=== PATIENT | female | born 1990 | race Two or more races ===

== ENCOUNTER 2017-01-26 13:02 | Inpatient (IN) | payer MEDICAID ==
[~2017-01-26 13:02] MED LIST: FOLI1 PO; IBUP600 PO; MACR100C PO; PRENTAB72 PO
--- NOTE | 2017-01-26 13:46 | PD ---
HPI Chief Complaint contractions x 2 days Date Seen: Jan 26, 2017 Time Seen: 13:46 Travel History International Travel<30 Days: No Contact w/Intl Traveler<30Days: No Known Affected Area: No History of Present Illness HPI Patient is a Pakistani-speaking is a 26 year old at 39 and 4/7 weeks gestation, [facility]GI 01/30/2017, who presents to the OB ED with contractions x 2 days. She denies leakage of fluid and vaginal bleeding. She feels baby moving regularly. She denies PALACIO/N/V/D/fever/sick contacts/calf pain/dizziness/seeing spots. She endorses SOB this . OB care is with Jeni Abbott. Interpretation by Arlene Amaro, [id number] Para: 3 : 4 History Past Medical History Medical History: Denies Significant Hx Obstetric History Obstetric History G1-G3: vaginal delivery, reportedly normal pregnancies, most recent 2 years ago , largest weight G4: current, uncomplicated labor Past Surgical History Surgical History: No Previous Surgery Family History Family History: Negative Social History Alcohol Use: No Tobacco Use: No Substance Abuse: No Allergies-Medications (Allergen,Severity, Reaction): Coded Allergies: No Known Allergies (Unverified , 04/26/16) Review of Systems Except as stated in HPI: all other systems reviewed are Neg Physical Exam Narrative GENERAL: Well-nourished, well-developed patient. SKIN: Warm and dry. HEAD: Normocephalic and atraumatic. EYES: No scleral icterus. No injection or drainage. ENT: No nasal drainage noted. Mucous membranes pink. Airway patent. NECK: Supple, trachea midline. No JVD. CARDIOVASCULAR: Regular rate and rhythm without murmurs, gallops, or rubs. RESPIRATORY: Breath sounds equal bilaterally. No accessory muscle use. ABDOMEN/GI: Abdomen soft, non-tender, bowel sounds present, no rebound, no guarding Gravid to 38 weeks size GENITOURINARY: External Genitalia: intact and normal in appearance Cervix: 50/-2 Presentation: vertex Membranes: bulging Uterine Contractions: q4-5 min FHT's: Category: 1 Baseline: 150 Reactive: y to 165 Variability:mod Decels: absent EXTREMITIES: No cyanosis or edema. BACK: Nontender without obvious deformity. No CVA tenderness. NEUROLOGICAL: Awake and alert. Motor and sensory grossly within normal limits. Five out of 5 muscle strength in all muscle groups. Normal speech. Data Data Vital Signs Reviewed: Yes Orders Vital Signs (Adult) .ON ADMISSION (01/26/17 13:43) ^ Labor Status (01/26/17 13:43) ^ Non Stress Test (01/26/17 13:43) ^ Hydration (01/26/17 13:43) MDM Medical Record Reviewed: Yes (VS reviewed: BP 106/66, P128, R18. Temp not available) Narrative Course / MDM 26 yr old Pakistani-speaking is a 26 year old at 39 and 4/7 weeks gestation, MAGGI 01/30/2017, who presents in labor. Intrauterine : Category 1 tracing Cervix: 6/50%/-2 Patient desires vaginal delivery without epidural Expect prompt delivery EFW 6 lb Intact bulging membrane Admit for labor CBC, UA, T&S ordered IV fluids Monitor heart tones Routine care lab pink slip from Jeni Abbott reviewed and unremarkable. Will get official labs faxed now. GBS unknown: order rapid GBS, treat with IV penicillin per protocol if positive JANEYW Hawa Walsh MD R1 Jan 26, 2017 13:46
[2017-01-26] MEDS ORDERED: LACTATED RINGER'S 1000 ML INJ 1,000 ML IV SCH (13:49)
[2017-01-26] MEDS ORDERED: LACTATED RINGER'S 1000 ML INJ 1,000 ML IV PRN (13:49)
[2017-01-26] MEDS ORDERED: LIDOCAINE HCL 1% 50 ML VIAL I-DERMAL PRN (14:00)
[2017-01-26] MEDS ORDERED: MINERAL OIL 10 ML VIAL TOPICAL PRN (14:00)
[2017-01-26] MEDS ORDERED: OXYTOCIN 30 UNITS-500ML PREMIX 500 ML IV ONE (14:00)
[2017-01-26] MEDS ORDERED: CITRIC ACID-SODIUM CITRATE LIQ 30 ML UDC PO SCH (14:00)
[2017-01-26] MEDS ORDERED: LIDOCAINE HCL 1% 50 ML VIAL INFIL PRN (14:00)
[2017-01-26] MEDS ORDERED: SODIUM CHLORID 0.9% 500 ML INJ 500 ML IV PRN (14:00)
[2017-01-26] MEDS ORDERED: SODIUM CHLOR 0.9% 1000 ML INJ 1,000 ML IV PRN (14:09)
--- NOTE | 2017-01-26 14:22 | HHI.HP ---
HPI Chief Complaint contractions Date Seen: Jan 26, 2017 Time Seen: 14:21 Travel History International Travel<30 Days: No Contact w/Intl Traveler<30Days: No Known Affected Area: No History of Present Illness HPI Patient is a Luxembourger-speaking is a 26 year old at 39 and 4/7 weeks gestation, MAGGI 01/30/2017 based on second trimester US not consistent with LMP, who presents to the OB ED with contractions x 2 days. She denies leakage of fluid and vaginal bleeding. She feels baby moving regularly. She denies PALACIO/N/V/D /fever/sick contacts/calf pain/dizziness/seeing spots. She endorses SOB this . OB care is with Jeni Abbott; she established care at approx. 22 weeks. Interpretation by Arlene Amaro, [id number] Para: 3 : 4 History Past Medical History Medical History: Denies Significant Hx Obstetric History Obstetric History G1-G3: vaginal delivery, reportedly normal pregnancies, most recent 2 years ago , largest weight G4: current, uncomplicated labor Labs reviewed from Jeni Abbott's office: 11/11/16: H&H 11.3/32.8, plt wnl 11/27/16: H&H 10.7/31.1, plt wnl, A1c 4.8 11/11/16: UA, GC/Chlamydia, Trichomonas negative, Hep B negative, RPR non- reactive, O positive blood type, HIV negative, Rubella immune Past Surgical History Surgical History: No Previous Surgery Family History Family History: Negative Social History Alcohol Use: No Tobacco Use: No Substance Abuse: No Allergies-Medications (Allergen,Severity, Reaction): Coded Allergies: No Known Allergies (Unverified , 04/26/16) Review of Systems Except as stated in HPI: all other systems reviewed are Neg Physical Exam Narrative GENERAL: Well-nourished, well-developed patient. SKIN: Warm and dry. HEAD: Normocephalic and atraumatic. EYES: No scleral icterus. No injection or drainage. ENT: No nasal drainage noted. Mucous membranes pink. Airway patent. NECK: Supple, trachea midline. No JVD. CARDIOVASCULAR: Regular rate and rhythm without murmurs, gallops, or rubs. RESPIRATORY: Breath sounds equal bilaterally. No accessory muscle use. ABDOMEN/GI: Abdomen soft, non-tender, bowel sounds present, no rebound, no guarding Gravid to 38 weeks size GENITOURINARY: External Genitalia: intact and normal in appearance Cervix: 50/-2 Presentation: vertex Membranes: bulging Uterine Contractions: q4-5 min FHT's: Category: 1 Baseline: 150 Reactive: y to 165 Variability:mod Decels: absent EXTREMITIES: No cyanosis or edema. BACK: Nontender without obvious deformity. No CVA tenderness. NEUROLOGICAL: Awake and alert. Motor and sensory grossly within normal limits. Five out of 5 muscle strength in all muscle groups. Normal speech. Data Data Vital Signs Reviewed: Yes (BP 106/66, P128, R18. Temp not available) Orders Vital Signs (Adult) .ON ADMISSION (01/26/17 13:43) ^ Labor Status (01/26/17 13:43) ^ Non Stress Test (01/26/17 13:43) ^ Hydration (01/26/17 13:43) Admit To Inpatient (01/26/17 ) Code Status (01/26/17 13:49) Vital Signs (Adult) .Per protocol (01/26/17 13:49) Activity Oob Ad Lisa (01/26/17 13:49) Heart (01/26/17 13:49) Amnioinfusion (01/26/17 13:49) Urinary Catheter Management .ONCE (01/26/17 13:49) Diet Npo (01/26/17 Lunch) Lactated Ringer's 1000 Ml Inj (Lr 1000 M (01/26/17 13:49) Lactated Ringer's 1000 Ml Inj (Lr 1000 M (01/26/17 13:49) Sodium Chlorid 0.9% 500 Ml Inj (Ns 500 M (01/26/17 14:00) Sodium Chlor 0.9% 1000 Ml Inj (Ns 1000 M (01/26/17 14:09) Lidocaine 1% Inj (50 Ml) (Xylocaine 1% I (01/26/17 14:00) Citric Acid-Sodium Citrate Liq (Bicitra (01/26/17 14:00) Fentanyl Inj (Fentanyl Inj) (01/26/17 14:00) Fentanyl Inj (Fentanyl Inj) (01/26/17 14:00) Complete Blood Count With Diff (01/26/17 13:49) Hold Clot (01/26/17 13:49) Abo/Rh Blood Type (01/26/17 13:49) Urinalysis - C+S If Indicated (01/26/17 13:49) Type And Screen (01/26/17 13:49) Resp Oxygen Non Rebreathe Mask (01/26/17 ) ^ Epidural / Intrathecal Infus (01/26/17 13:49) Oxytocin 30 Units-500ml Premix (Pitocin (01/26/17 14:00) Lidocaine 1% Inj (50 Ml) (Xylocaine 1% I (01/26/17 14:00) Light Mineral Oil (Muri-Lube Oil) (01/26/17 14:00) Inpatient Certification (01/26/17 ) Ob (2e) Additional Admit Info (01/26/17 13:51) Group B Strep Pcr (Rapid) (01/26/17 14:08) Assessment/Plan Assessment and Plan 26 yr old Luxembourger-speaking is a 26 year old at 39 and 4/7 weeks gestation, [facility]GI 01/30/2017, who presents in labor. Intrauterine : Category 1 tracing Cervix: 6/50%/-2 Patient desires vaginal delivery without epidural Expect prompt delivery EFW 6 lb Intact bulging membrane Admit for labor CBC, UA, T&S ordered IV fluids Monitor heart tones Routine care lab pink slip from Jeni Abbott reviewed and unremarkable. Will get official labs faxed now. GBS unknown: order rapid GBS, treat with IV penicillin per protocol if positive SDW Dr. Lim Discharge Planning Discharge 1-2 days after vaginal delivery to home Hawa Peck MD R1 Jan 26, 2017 14:22
[2017-01-26 14:35] LABS: BACTERIA, URINE MANY /hpf; BLOOD, URINE NEG (NEG); COMMENT (UR) CULTURE INDICATED; CULTURE IF INDICATED CULTURE INDICATED; GLUCOSE,URINE NEG (NEG); KETONE, URINE NEG (NEG); NITRITE,URINE NEG (NEG); PH, URINE 6.5 (5.0-8.5); SQUAMOUS EPITHELIAL CELL URINE 29 /hpf (0-5); URINE COLOR YELLOW (YELLW/STRAW)
[2017-01-26 14:56] LABS: AUTOMATED NEUTROPHIL # 6.8 TH/MM3 (1.8-7.7); BASOPHIL % 0.5 % (0.0-2.0); EOSINOPHIL # 0.1 TH/MM3 (0-0.4); EOSINOPHIL % 1.3 % (0.0-4.0); HEMATOCRIT 34.3 % (35.0-46.0); HEMO FLAGS DIFF FINAL; LYMPH % 20.2 % (9.0-44.0); LYMPHOCYTE # 1.9 TH/MM3 (1.0-4.8); MEAN CELL VOLUME 87.6 FL (80.0-100.0); MEAN CORPUSCULAR HEMOGLOBIN 28.5 PG (27.0-34.0); MEAN CORPUSCULAR HGB CONC 32.6 % (32.0-36.0); MONO % 5.4 % (0.0-8.0); NEUT % 72.6 % (16.0-70.0); PLATELET COUNT 293 TH/MM3 (150-450); RED BLOOD COUNT 3.91 MIL/MM3 (4.00-5.30); RED CELL DISTRIBUTION WIDTH 13.6 % (11.6-17.2); WHITE BLOOD COUNT 9.4 TH/MM3 (4.0-11.0)
--- NOTE | 2017-01-26 15:21 | PD.LABORPN ---
Subjective Subjective Patient feeling CTX q5 min, uncomfortable, still not wanting epidural but would now like IV medication Still feeling baby move No LOF yet Objective Objective Pelvic Exam: Cervix: soft, midposition Dilatation:7 Effacement:70 Station: -3 Presentation: vertex Membranes: AROM at 1515 Uterine Contractions: q4min FHT's: Category: 1 Baseline:135 Reactive: y to 155 Variability:mod Decels: absent Assessment/Plan Problem List: (1) with 39 completed weeks gestation (2) Mother's group B Streptococcus colonization status unknown Assessment and Plan 26 yr old Palauan-speaking is a 26 year old at 39 and 4/7 weeks gestation, [facility]GI 01/30/2017, admitted for labor. Intrauterine : Category 1 tracing Cervix: 6/70%/-3 Patient desires vaginal delivery without epidural IV pain meds PRN Expect vaginal delivery EFW 6 lb SROM 01/26/17 @ 1515 CBC, UA, T&S ordered T&S pending H&H 11.2/34.3 UA notable for WBC = 61, large leukocyte esterase, will treat for UTI post- per attending IV fluids Clear liquids Monitor heart tones Routine care Official records from Jeni Abbott reviewed and unremarkable. GBS unknown: ordered rapid GBS, still pending, treat with IV penicillin per protocol if positive Previous child with cleft palate: per EMR, no abnormalities noted on US this per records SDW Dr. Lim and Hawa Christianson MD R1 Jan 26, 2017 15:20
[2017-01-26] MEDS ORDERED: MEASLES, MUMPS, RUBELLA VACCINE 0.5 ML VIAL SQ ONE (16:00)
[2017-01-26] MEDS ORDERED: DIPHTH/TETANUS/ACEL PERTUSSIS (BOOSTER) 0.5 ML VIAL/PFS IM ONE (16:00)
[2017-01-26] MEDS ORDERED: oxyCODONE/ACETAMINOPHEN 5 MG/325 MG TAB PO PRN ×2 (18:15)
[2017-01-26] MEDS ORDERED: ALUMINUM/MAGNESIUM/SIMETH 30 ML CUP PO PRN (18:15)
[2017-01-26] MEDS ORDERED: ZOLPIDEM TARTRATE 5 MG TAB PO PRN (18:15)
[2017-01-26] MEDS ORDERED: BENZOCAINE 20% TOPICAL SPRAY 60 ML CAN TOPICAL PRN (18:15)
[2017-01-26] MEDS ORDERED: WITCH HAZEL 50%/GLYCERIN 12.5% 40 PAD JAR TOPICAL PRN (18:15)
[2017-01-26] MEDS ORDERED: DOCUSATE SODIUM 50 MG/SENNA 8.6 MG TAB PO PRN (18:15)
[2017-01-26] MEDS ORDERED: SODIUM CHLORIDE 0.9% FLUSH 10 ML FLUSH IV FLUSH PRN (18:15)
[2017-01-26] MEDS ORDERED: ONDANSETRON ODT 4 MG TAB PO PRN (18:15)
--- NOTE | 2017-01-26 18:18 | PD.OB.DELI ---
Anesthesia: None Episiotomy: None Vaginal Delivery: Normal Presentation: Occiput anterior Nuchal Cord: x1 (tight, clampled and cut after head presentation) Infant: Male, Single One Minute : 9 Five Minute : 9 Placenta: Intact Laceration: No lacerations Additional Information Normal spontaneous vaginal delivery of live male intact, position ANKUSH over intact perineum without epidural anesthesia. Nuchal cord 1, tight, clamped and cut before delivery of body. Spontaneous delivery of placenta with 3-vessel cord. No lacerations. EBL [address] Lim present during entire delivery. R2 Dr. Stevenson was scrubbed in and assisted delivery. Hawa Peck MD R1 Jan 26, 2017 18:18
[2017-01-26] MEDS: IBUPROFEN 600 MG TAB PO PRN (18:46)
[2017-01-26 19:00] VITALS: BP 116/70; PULSE 81
[2017-01-26] MEDS ORDERED: OXYTOCIN 30 UNITS-500ML PREMIX 500 ML ONE (19:03)
[2017-01-26 19:10] VITALS: RESP 18
[2017-01-26 19:25] VITALS: RESP 18
[2017-01-26 19:40] VITALS: RESP 18
[2017-01-26 20:30] VITALS: BP 97/63; PULSE 74; RESP 16; TEMP 98.1
[2017-01-26] MEDS: SODIUM CHLORIDE 0.9% FLUSH 10 ML FLUSH IV FLUSH SCH (21:00)
[2017-01-26] MEDS: ACETAMINOPHEN 325 MG TAB PO PRN (22:55)
[2017-01-27] MEDS: IBUPROFEN 600 MG TAB PO PRN ×2 (05:45→13:17)
[2017-01-27] MEDS: ACETAMINOPHEN 325 MG TAB PO PRN ×2 (05:45→13:18)
--- NOTE | 2017-01-27 07:29 | HHI.OB ---
Subjective Post Day: 1 Remarks day # 1. AFVSS overnight. Decreased lochia. Denies dysuria. No breast tenderness. She is feeding the baby via breast and formula. Appetite good. No nausea or vomiting. Ambulating well. Denies calf pain or shortness of breath. Otherwise, she is doing well this morning and has no other concerns. Interpretor Vielka Avalos was used during this interaction. Objective Vitals/I&O Vital Signs Date Time Temp Pulse Resp B/P Pulse Ox O2 Delivery O2 Flow Rate FiO2 01/26/17 23:55 16 01/26/17 20:30 98.1 74 16 97/63 01/26/17 19:46 16 01/26/17 19:40 18 01/26/17 19:25 18 01/26/17 19:10 18 01/26/17 19:00 81 116/70 Objective Remarks GENERAL: Well-nourished, well-developed female in no apparent distress. CARDIOVASCULAR: Regular rate and rhythm without murmurs, gallops, or rubs. RESPIRATORY: Breath sounds equal bilaterally. No accessory muscle use. ABDOMEN/GI: Abdomen soft, non-tender. Fundus: Firm, non-tender at umbilicus. GENITOURINARY: Light to moderate bleeding. EXTREMITIES: No cyanosis or edema, non-tender, without signs of DVT. Medications and IVs Current Medications Medications (Trade) Dose Ordered Sig/Dominic Route Start Time Stop Time Status Last Admin (NS Flush) 2 ml BID IV FLUSH 01/26/17 21:00 (NS Flush) 2 ml UNSCH PRN IV FLUSH 01/26/17 18:15 (Tylenol) 650 mg Q4H PRN PO 01/26/17 18:15 01/27/17 05:45 (Motrin) 600 mg Q6H PRN PO 01/26/17 18:15 01/27/17 05:45 (Percocet 5-325 Mg) 1 tab Q4H PRN PO 01/26/17 18:15 (Percocet 5-325 Mg) 2 tab Q4H PRN PO 01/26/17 18:15 (Americaine 20% Top Spr) 1 spray Q4H PRN TOPICAL 01/26/17 18:15 (Tucks Pads) 1 applic QID PRN TOPICAL 01/26/17 18:15 (Moon-Colace) 2 tab Q12H PRN PO 01/26/17 18:15 (Ambien) 5 mg HS PRN PO 01/26/17 18:15 (Mag-Al Plus Susp Liq) 15 ml Q8H PRN PO 01/26/17 18:15 (Zofran Odt) 4 mg Q6H PRN PO 01/26/17 18:15 Assessment/Plan Problem List: (1) with 39 completed weeks gestation (2) Mother's group B Streptococcus colonization status unknown Assessment and Plan 26 yr old Belizean-speaking is a 26 year old [id number] who is s/p NVD -Continue routine care. -Percocet and Motrin PRN pain. -Encouraged OOB. Advised pelvic rest for 6 wks. -Re: ctrl, she would like Copper IUD -Anticipate discharge tomorrow Discussed with Dr. Lim Discharge Planning Discharge to home tomorrow Hawa Peck MD R1 Jan 27, 2017 07:29
[2017-01-27 20:01] VITALS: BP 106/74; PULSE 69; RESP 18; TEMP 98.4
[2017-01-28] MEDS: ACETAMINOPHEN 325 MG TAB PO PRN (05:31)
[2017-01-28] MEDS: IBUPROFEN 600 MG TAB PO PRN (05:32)
[2017-01-28] MEDS ORDERED: ACET1TAB86 PO (06:10)
[2017-01-28] MEDS ORDERED: PREN1CAP28 PO (06:10)
[2017-01-28] MEDS ORDERED: IBUP-232 PO (06:10)
--- NOTE | 2017-01-28 06:10 | HHI.DCPOC ---
Discharge Care Plan Diagnosis: (1) with 39 completed weeks gestation (2) Status post vaginal delivery Report Symptoms to Your Doctor -Temperature above 100.5 degrees -Redness, of incision or excessive or foul smelling drainage -Unusual pain or calf pain -Increased vaginal bleeding -Painful or difficulty urinating -Feelings of extreme sadness or anxiety after 2 weeks Goals to Promote Your Health * To prevent worsening of your condition and complications * To maintain your health at the optimal level Directions to Meet Your Goals Take your medications as prescribed Follow your dietary instruction Follow activity as directed Ensure plenty of rest for recovery Drink fluids for hydration Keep your appointments as scheduled Take your immunizations and boosters as scheduled If your symptoms worsen call your PCP, if no PCP go to Urgent Care Center or Emergency Room Smoking is Dangerous to Your Health. Avoid second hand smoke Call the 24-hour crisis hotline for domestic abuse at Hawa Peck MD R1 Jan 28, 2017 06:10
--- NOTE | 2017-01-28 06:47 | HHI.OB ---
Subjective Post Day: 2 Remarks day # 2. AFVSS overnight. Decreased lochia. Denies dysuria. No breast tenderness. She is feeding the baby via breast. Appetite good. No nausea or vomiting. Ambulating well. Denies calf pain or shortness of breath. Otherwise, she is doing well this morning and has no other concerns. Laboratory Aide Barry [id number] was used during this interaction. (Hawa Peck MD R1) Objective Vitals/I&O Vital Signs Date Time Temp Pulse Resp B/P Pulse Ox O2 Delivery O2 Flow Rate FiO2 01/27/17 20:01 98.4 69 18 106/74 Objective Remarks GENERAL: Well-nourished, well-developed female in no apparent distress. CARDIOVASCULAR: Regular rate and rhythm without murmurs, gallops, or rubs. RESPIRATORY: Breath sounds equal bilaterally. No accessory muscle use. ABDOMEN/GI: Abdomen soft, non-tender. Fundus: Firm, non-tender at umbilicus. GENITOURINARY: Light to moderate bleeding. EXTREMITIES: No cyanosis or edema, non-tender, without signs of DVT. Medications and IVs Current Medications Medications (Trade) Dose Ordered Sig/Dominic Route Start Time Stop Time Status Last Admin (NS Flush) 2 ml BID IV FLUSH 01/26/17 21:00 (NS Flush) 2 ml UNSCH PRN IV FLUSH 01/26/17 18:15 (Tylenol) 650 mg Q4H PRN PO 01/26/17 18:15 01/28/17 05:31 (Motrin) 600 mg Q6H PRN PO 01/26/17 18:15 01/28/17 05:32 (Percocet 5-325 Mg) 1 tab Q4H PRN PO 01/26/17 18:15 (Percocet 5-325 Mg) 2 tab Q4H PRN PO 01/26/17 18:15 (Americaine 20% Top Spr) 1 spray Q4H PRN TOPICAL 01/26/17 18:15 (Tucks Pads) 1 applic QID PRN TOPICAL 01/26/17 18:15 (Moon-Colace) 2 tab Q12H PRN PO 01/26/17 18:15 01/27/17 17:01 (Ambien) 5 mg HS PRN PO 6/12/17 18:15 (Mag-Al Plus Susp Liq) 15 ml Q8H PRN PO 01/26/17 18:15 (Zofran Odt) 4 mg Q6H PRN PO 01/26/17 18:15 (Hawa Peck MD R1) Assessment/Plan Problem List: (1) with 39 completed weeks gestation (2) Mother's group B Streptococcus colonization status unknown Assessment and Plan 26 yr old Bolivian-speaking is a 26 year old [id number] who is s/p NVD -Continue routine care. -Tylenol and Motrin PRN pain. -Encouraged OOB. Advised pelvic rest for 6 wks. -Re: ctrl, she would like Copper IUD -Anticipate discharge today Will discuss with Dr. Dill Discharge Planning Discharge to home tomorrow (Hawa Peck MD R1) Attestation Patient seen and examined. Agree with resident's assessment/plan. (Berna Dill MD) Hawa Peck MD R1 Jan 28, 2017 06:47 Berna Dill MD Jan 28, 2017 09:21
[2017-01-28 08:00] VITALS: BP 110/69; PULSE 82; RESP 17; TEMP 97.4
[2017-01-28] MEDS: SODIUM CHLORIDE 0.9% FLUSH 10 ML FLUSH IV FLUSH SCH (09:00)
== END 2017-01-28 12:25 | disposition home or self-care (01) | DRG 774 ==
LOC: HOBED 13:02 → H2EB 13:54 → H1EA 19:46
PROVIDERS: ADMIT Obstetrics & Gynecology Maternal & Fetal Medicine; ATTEND Obstetrics & Gynecology Maternal & Fetal Medicine
PROC: 10E0XZZ Delivery of Products of Conception, External Approach (ICD-10-PCS; principal; 2017-01-26)
DX: O69.1XX0 Labor and delivery complicated by cord around neck, with compression, not applicable or unspecified (principal); O75.3 Other infection during labor; Z37.0 Single live birth; Z3A.39 39 weeks gestation of pregnancy
CPT/HCPCS: 59025; 81001; 85025; 86850; 86900; 86901; 87081; 87086; 87150; 90715; J2590; J3010; J7120

== ENCOUNTER 2017-05-31 18:19 | Emergency (ER) | payer MEDICAID, OTHER ==
[~2017-05-31] VITALS: Ht 162.6 cm; Wt 70.0 kg
[~2017-05-31 18:19] MED LIST changes: +ACET1TAB86 PO; -FOLI1 PO; +IBUP-232 PO; -IBUP600 PO; -MACR100C PO; +PREN1CAP28 PO; -PRENTAB72 PO
--- NOTE | 2017-05-31 20:03 | PD ---
HPI Chief Complaint: Psychiatric Symptoms Time Seen by Provider: 19:53 Travel History International Travel<30 days: No Contact w/Intl Traveler<30days: No Traveled to known affect area: No History of Present Illness HPI 27-year-old female presents to emergency department under [place] act by PD. The patient's history and exam is performed in the presence of the nurse's as well as using the interpretive services of [employer]. According to the patient she has been having social issues with her first child's father. She states that she is also been having problems with her immediate family. They always blamed her for problems. She states that they don't like the way she does things. She had left her children at her sister's house and had left the car. The patient did not notify family that she was leaving. She had sent them a text message. Family was concerned that this may be a suicide attempt. The patient denies making any suicidal statements or having any suicidal thoughts. No homicidal ideation. She states that she's never had any mental health issues. Denies any medical complaints. She reports having a 3-month- old at home which breast-feeds only. She denies any drugs, tobacco or alcohol. She is on Depo-Provera. [facility] Past Medical History Medical History: Denies Significant Hx Tetanus Vaccination: < 5 Years ?: Not Past Surgical History Surgical History: No Previous Surgery Social History Alcohol Use: No Tobacco Use: No Substance Use: No Allergies-Medications (Allergen,Severity, Reaction): Coded Allergies: No Known Allergies (Unverified , 05/31/17) Reported Meds & Prescriptions Reported Meds & Active Scripts Active No Active Prescriptions or Reported Medications Review of Systems General / Constitutional: No: Fever Eyes: No: Visual changes HENT: No: Headaches Cardiovascular: No: Chest Pain or Discomfort Respiratory: No: Shortness of Breath Gastrointestinal: No: Abdominal Pain Genitourinary: No: Dysuria Musculoskeletal: No: Pain Skin: No Rash Neurologic: No: Weakness Psychiatric: Positive: Depression, Mood Disorder, No: Anxiety, Suicidal Ideations, Disorder of Thought, Substance Abuse, Homicidal Ideation Endocrine: No: Polydipsia Hematologic/Lymphatic: No: Easy Bruising Physical Exam Narrative GENERAL: Well-nourished, well-developed patient. SKIN: Warm and dry. HEAD: Normocephalic and atraumatic. EYES: No scleral icterus. No injection or drainage. ENT: No nasal drainage noted. Mucous membranes pink. Airway patent. NECK: Supple, trachea midline. Moves head freely without obvious discomfort. CARDIOVASCULAR: Regular rate and rhythm without murmurs, gallops, or rubs. RESPIRATORY: Breath sounds equal bilaterally. No accessory muscle use. GASTROINTESTINAL: Abdomen soft, non-tender, nondistended. EXTREMITIES: No cyanosis or edema. BACK: Nontender without obvious deformity. No CVA tenderness. NEURO: Patient is alert and oriented. no sensorimotor deficits. Nonfocal. Normal speech. PSYCH: No delusions. No auditory or visual hallucinations. Data Data Last Documented VS Vital Signs Date Time Temp Pulse Resp B/P (MAP) Pulse Ox O2 Delivery O2 Flow Rate FiO2 05/31/17 21:08 98.4 95 16 120/79 (93) 95 Room Air Orders Orders Complete Blood Count With Diff (05/31/17 19:59) Comprehensive Metabolic Panel (05/31/17 19:59) Urinalysis - C+S If Indicated (05/31/17 19:59) Ed Urine Pregnancytest Poc (05/31/17 19:59) Psych Screen (05/31/17 19:59) Drug Screen, Random Urine (05/31/17 19:59) Alcohol (Ethanol) (05/31/17 19:59) Labs Laboratory Tests Test 05/31/17 19:59 05/31/17 21:04 White Blood Count 11.2 TH/MM3 Red Blood Count 4.26 MIL/MM3 Hemoglobin 13.2 GM/DL Hematocrit 40.1 % Mean Corpuscular Volume 94.1 FL Mean Corpuscular Hemoglobin 31.0 PG Mean Corpuscular Hemoglobin Concent 33.0 % Red Cell Distribution Width 13.5 % Platelet Count 380 TH/MM3 Mean Platelet Volume 7.0 FL Neutrophils (%) (Auto) 68.9 % Lymphocytes (%) (Auto) 25.5 % Monocytes (%) (Auto) 4.3 % Eosinophils (%) (Auto) 1.0 % Basophils (%) (Auto) 0.3 % Neutrophils # (Auto) 7.7 TH/MM3 Lymphocytes # (Auto) 2.9 TH/MM3 Monocytes # (Auto) 0.5 TH/MM3 Eosinophils # (Auto) 0.1 TH/MM3 Basophils # (Auto) 0.0 TH/MM3 CBC Comment DIFF FINAL Differential Comment Blood Urea Nitrogen 12 MG/DL Creatinine 0.74 MG/DL Random Glucose 78 MG/DL Total Protein 8.4 GM/DL Albumin 4.1 GM/DL Calcium Level 9.5 MG/DL Alkaline Phosphatase 130 U/L Aspartate Amino Transf (AST/SGOT) 17 U/L Alanine Aminotransferase (ALT/SGPT) 24 U/L Total Bilirubin 0.6 MG/DL Sodium Level 138 MEQ/L Potassium Level 3.8 MEQ/L Chloride Level 108 MEQ/L Carbon Dioxide Level 20.5 MEQ/L Anion Gap 10 MEQ/L Estimat Glomerular Filtration Rate 94 ML/MIN Urine Opiates Screen NEG Urine Barbiturates Screen NEG Urine Amphetamines Screen NEG Urine Benzodiazepines Screen NEG Urine Cocaine Screen NEG Urine Cannabinoids Screen NEG Ethyl Alcohol Level LESS THAN 3 MG/DL MDM Medical Decision Making Medical Screen Exam Complete: Yes Emergency Medical Condition: Yes Medical Record Reviewed: Yes Differential Diagnosis MDM: High Differential diagnoses: Schizophrenia, schizoaffective disorder, bipolar, anxiety, depression, adjustment reaction, mood disorder NOS, depression, substance induced mood disorder, intermittent explosive disorder, Asperger syndrome, infection,electrolyte abnormality, malingering. Narrative Course Mental health screening discussed with the patient. Psychiatric screen ordered. The patient been medically cleared. This is medical clearance for psychiatric admission Diagnosis Primary Impression: Medical clearance for psychiatric admission Scripts No Active Prescriptions or Reported Meds Condition: Cristóbal Morrow May 31, 2017 20:03
[2017-05-31 21:08] VITALS: BP 120/79; PULSE 95; RESP 16; TEMP 98.4; O2SAT 95
[2017-05-31 21:58] LABS: AUTOMATED NEUTROPHIL # 7.7 TH/MM3 (1.8-7.7); BASOPHIL % 0.3 % (0.0-2.0); EOSINOPHIL # 0.1 TH/MM3 (0-0.4); HEMATOCRIT 40.1 % (35.0-46.0); HEMO FLAGS DIFF FINAL; LYMPH % 25.5 % (9.0-44.0); LYMPHOCYTE # 2.9 TH/MM3 (1.0-4.8); MEAN CELL VOLUME 94.1 FL (80.0-100.0); MONO % 4.3 % (0.0-8.0); NEUT % 68.9 % (16.0-70.0); PLATELET COUNT 380 TH/MM3 (150-450); RED BLOOD COUNT 4.26 MIL/MM3 (4.00-5.30); RED CELL DISTRIBUTION WIDTH 13.5 % (11.6-17.2); WHITE BLOOD COUNT 11.2 TH/MM3 (4.0-11.0)
[2017-05-31 22:14] LABS: ALT (GPT) 24 U/L (10-53)
[2017-05-31 22:16] LABS: ALKALINE PHOSPHATASE 130 U/L (45-117); TOTAL BILIRUBIN ADULT 0.6 MG/DL (0.2-1.0)
[2017-05-31 22:20] LABS: ANION GAP 10 MEQ/L (5-15); AST (GOT) 17 U/L (15-37); BICARBONATE 20.5 MEQ/L (21.0-32.0); BLOOD UREA NITROGEN 12 MG/DL (7-18); CHLORIDE 108 MEQ/L (98-107); GLOMERULAR FILTRATION RATE 94 ML/MIN (>89); POTASSIUM 3.8 MEQ/L (3.5-5.1); SODIUM (NA) 138 MEQ/L (136-145)
[2017-05-31 22:23] LABS: ALCOHOL LESS THAN 3 MG/DL (0-5)
--- NOTE | 2017-06-01 11:05 | PD ---
History of Present Illness Chief Complaint: Psychiatric Symptoms Time Seen by Provider: 10:30 Travel History International Travel<30 Days: No Contact w/Intl Traveler<30days: No Known affected area: No Legal Status Legal Status: Sheikh Act Sheikh Act Signed By: Anibal Pratt History of Present Illness: 27-year-old female brought in under a Sheikh act after leaving home without notifying family members. Patient apparently went to a bar and did not answer her phone. She describes being in a verbal altercation with family members. She has a 3-month-old baby who is breast-feeding at the time of this evaluation. This physician obtained translating assistance from one of the ED nurses, Remedios. Patient is smiling and pleasant. She is cooperative and states she has no suicidal or homicidal ideation, plan or intent. She demonstrates no psychotic symptoms and her cognition is intact. She is verbally theresa for safety and states she is welcome to return to her home , despite the verbal altercations. She is competent to make decisions for herself and her 3-month-old. [facility] Past Medical History Medical History: Denies Significant Hx Tetanus Vaccination: < 5 Years ?: Not Past Surgical History Surgical History: No Previous Surgery Psychiatric History Psychiatric History Hx Psychiatric Treatment: PATIENT DENIES History of Inpatient Treatment: No Guns or firearms in home: No Social History Hx Alcohol Use: No Hx Tobacco Use: No Hx Substance Use: No Hx of Substance Use Treatment: No Allergies-Medications (Allergen,Severity, Reaction): Coded Allergies: No Known Allergies (Unverified , 05/31/17) Reported Meds & Prescriptions Reported Meds & Active Scripts Active No Active Prescriptions or Reported Medications Review of Systems Except as stated in HPI: all other systems reviewed are Neg Mental Status Examination Appearance: Appropriate Consciousness: Alert Orientation: x4 Motor Activity: Normal gait Speech: Unremarkable Language: Adequate Fund of Knowledge: Adequate Attention and Concentration: Adequate Memory: Unremarkable Mood: Appropriate Affect: Appropriate Thought Process & Associations: Intact Thought Content: Appropriate Hallucination Type: None Delusion Type: None Suicidal Ideation: No Suicidal Plan: No Suicidal Intention: No Homicidal Ideation: No Homicidal Plan: No Homicidal Intention: No Insight: Adequate Judgment: Adequate MDM Medical Decision Making Medical Record Reviewed: Yes Assessment/Plan Patient interviewed at bedside with assistance of template maker. Medical record reviewed. Case discussed with nurse. Patient does not meet Sehikh act criteria or involuntary psychiatric hospitalization criteria. She assures this physician and the staff that she is not suicidal or homicidal. No evidence of psychosis, cognitive impairment or mood disorder. She is being discharged home after theresa for safety. Patient is competent to make these decisions. As stated previously, she is smiling, happy and breast-feeding her baby. Orders Orders Complete Blood Count With Diff (05/31/17 19:59) Comprehensive Metabolic Panel (05/31/17 19:59) Urinalysis - C+S If Indicated (05/31/17 19:59) Ed Urine Pregnancytest Poc (05/31/17 19:59) Psych Screen (05/31/17 19:59) Drug Screen, Random Urine (05/31/17 19:59) Alcohol (Ethanol) (05/31/17 19:59) Diet Regular Basic (06/01/17 Breakfast) Results Vital Signs Date Time Temp Pulse Resp B/P (MAP) Pulse Ox O2 Delivery O2 Flow Rate FiO2 05/31/17 21:08 98.4 95 16 120/79 (93) 95 Room Air Laboratory Tests Test 05/31/17 19:59 05/31/17 21:04 White Blood Count 11.2 Red Blood Count 4.26 Hemoglobin 13.2 Hematocrit 40.1 Mean Corpuscular Volume 94.1 Mean Corpuscular Hemoglobin 31.0 Mean Corpuscular Hemoglobin Concent 33.0 Red Cell Distribution Width 13.5 Platelet Count 380 Mean Platelet Volume 7.0 Neutrophils (%) (Auto) 68.9 Lymphocytes (%) (Auto) 25.5 Monocytes (%) (Auto) 4.3 Eosinophils (%) (Auto) 1.0 Basophils (%) (Auto) 0.3 Neutrophils # (Auto) 7.7 Lymphocytes # (Auto) 2.9 Monocytes # (Auto) 0.5 Eosinophils # (Auto) 0.1 Basophils # (Auto) 0.0 CBC Comment DIFF FINAL Differential Comment Blood Urea Nitrogen 12 Creatinine 0.74 Random Glucose 78 Total Protein 8.4 Albumin 4.1 Calcium Level 9.5 Alkaline Phosphatase 130 Aspartate Amino Transf (AST/SGOT) 17 Alanine Aminotransferase (ALT/SGPT) 24 Total Bilirubin 0.6 Sodium Level 138 Potassium Level 3.8 Chloride Level 108 Carbon Dioxide Level 20.5 Anion Gap 10 Estimat Glomerular Filtration Rate 94 Urine Opiates Screen NEG Urine Barbiturates Screen NEG Urine Amphetamines Screen NEG Urine Benzodiazepines Screen NEG Urine Cocaine Screen NEG Urine Cannabinoids Screen NEG Ethyl Alcohol Level LESS THAN 3 Diagnosis Primary Impression: Adjustment disorder with mixed disturbance of emotions and conduct Prescriptions No Active Prescriptions or Reported Meds Condition: Stable Elliot Mahajan MD Jun 01, 2017 11:04
--- NOTE | 2017-06-01 11:12 | PD ---
Physical Exam Date Seen by Provider: Jun 01, 2017 Time Seen by Provider: 11:08 Data Data Last Documented VS Vital Signs Date Time Temp Pulse Resp B/P (MAP) Pulse Ox O2 Delivery O2 Flow Rate FiO2 05/31/17 21:08 98.4 95 16 120/79 (93) 95 Room Air Orders Orders Complete Blood Count With Diff (05/31/17 19:59) Comprehensive Metabolic Panel (05/31/17 19:59) Urinalysis - C+S If Indicated (05/31/17 19:59) Ed Urine Pregnancytest Poc (05/31/17 19:59) Psych Screen (05/31/17 19:59) Drug Screen, Random Urine (05/31/17 19:59) Alcohol (Ethanol) (05/31/17 19:59) Diet Regular Basic (06/01/17 Breakfast) Labs Laboratory Tests Test 05/31/17 19:59 05/31/17 21:04 White Blood Count 11.2 TH/MM3 Red Blood Count 4.26 MIL/MM3 Hemoglobin 13.2 GM/DL Hematocrit 40.1 % Mean Corpuscular Volume 94.1 FL Mean Corpuscular Hemoglobin 31.0 PG Mean Corpuscular Hemoglobin Concent 33.0 % Red Cell Distribution Width 13.5 % Platelet Count 380 TH/MM3 Mean Platelet Volume 7.0 FL Neutrophils (%) (Auto) 68.9 % Lymphocytes (%) (Auto) 25.5 % Monocytes (%) (Auto) 4.3 % Eosinophils (%) (Auto) 1.0 % Basophils (%) (Auto) 0.3 % Neutrophils # (Auto) 7.7 TH/MM3 Lymphocytes # (Auto) 2.9 TH/MM3 Monocytes # (Auto) 0.5 TH/MM3 Eosinophils # (Auto) 0.1 TH/MM3 Basophils # (Auto) 0.0 TH/MM3 CBC Comment DIFF FINAL Differential Comment Blood Urea Nitrogen 12 MG/DL Creatinine 0.74 MG/DL Random Glucose 78 MG/DL Total Protein 8.4 GM/DL Albumin 4.1 GM/DL Calcium Level 9.5 MG/DL Alkaline Phosphatase 130 U/L Aspartate Amino Transf (AST/SGOT) 17 U/L Alanine Aminotransferase (ALT/SGPT) 24 U/L Total Bilirubin 0.6 MG/DL Sodium Level 138 MEQ/L Potassium Level 3.8 MEQ/L Chloride Level 108 MEQ/L Carbon Dioxide Level 20.5 MEQ/L Anion Gap 10 MEQ/L Estimat Glomerular Filtration Rate 94 ML/MIN Urine Opiates Screen NEG Urine Barbiturates Screen NEG Urine Amphetamines Screen NEG Urine Benzodiazepines Screen NEG Urine Cocaine Screen NEG Urine Cannabinoids Screen NEG Ethyl Alcohol Level LESS THAN 3 MG/DL MDM Medical Record Reviewed: Yes Supervised Visit with ALICIA: No Narrative Course 27-year-old female presented to the emergency room recently under Sheikh act initiated by Police [employer]. Patient was placed under Sheikh act after leaving home and 76 message to her sister's but said "I can't go on." She left her children at her sister's house as well as her car. Patient states she went to a bar and would not respond to the text messages. They called 911 and she was Sheikh acted. At this time she denies suicidal or homicidal ideation. States she has no medical complaints. Patient has her 3-month-old baby in the room with her who was brought in last night because he exclusively breast-feeds and needed to eat. Patient was seen and evaluated by psychiatrist and Sheikh act was lifted. She is anxious to go home. Stable for discharge. Diagnosis Primary Impression: Adjustment disorder with mixed disturbance of emotions and conduct Additional Instruction: Follow-up per psychiatrist's recommendations. Scripts No Active Prescriptions or Reported Meds Disposition: 01 DISCHARGE HOME Condition: Stable Shelly Stevenson Jun 01, 2017 11:12
== END 2017-06-01 11:47 | disposition home or self-care (01) ==
LOC: NEPD 18:19
DX: F43.25 Adjustment disorder with mixed disturbance of emotions and conduct (principal)
CPT/HCPCS: 80053; 80307; 84703; 85025; 99284